=== PATIENT | female | born 1950 | race Two or more races ===

== ENCOUNTER 2017-09-29 00:34 | Emergency (ER) | payer MEDICARE, OTHER ==
[~2017-09-29] VITALS: Ht 165.1 cm; Wt 81.2 kg
[~2017-09-29 00:34] MED LIST: ASPI-1169 PO; OMEPRAZOLE
--- NOTE | 2017-09-29 01:00 | NUR ---
AT [facility] BEDSIDE FOR MSE
--- NOTE | 2017-09-29 01:00 | NUR ---
PT BROUGHT IN BY EMS FOLLOWING SYNCOPAL EPISODE FOLLOWING ONSET OF CHEST PAIN X 1 DAY. C/O DIZZINESS AND FEELING LIGHTHEADED. REPORTS PAIN RADIATING TO BACK.
--- NOTE | 2017-09-29 01:15 | NUR ---
Elham hendrickson in EDM - 09/29/17 at 0117 by JORY Pt's blood pressure remains low. Dr. Tate notified, no further orders received at this time.
--- NOTE | 2017-09-29 01:15 | NUR ---
Pt's blood pressure remains low. Dr. Tate notified, no further orders received at this time.
--- NOTE | 2017-09-29 01:16 | NUR ---
RADIOLOGY IN ROOM FOR XRAY
[2017-09-29 01:20] LABS: BASOPHILS # (AUTO) 0.1 K/uL (0.0-8.0); BASOPHILS % (AUTO) 0.8 % (0.0-2.0); EOSINOPHILS # (AUTO) 0.2 K/uL (0.0-0.7); EOSINOPHILS % (AUTO) 2.8 % (0.0-7.0); HEMATOCRIT 38.1 % (31.2-41.9); HEMOGLOBIN 12.9 g/dL (10.9-14.3); LYMPHOCYTES # (AUTO) 2.6 K/uL (20.0-40.0); MEAN CORPUSCULAR HEMOGLOBIN 30.7 uug (24.7-32.8); MEAN CORPUSCULAR HGB CONC 34 g/dL (32.3-35.6); MEAN CORPUSCULAR VOLUME 90.6 fL (75.5-95.3); MONOCYTES # (AUTO) 0.7 K/uL (2.0-10.0); MONOCYTES % (AUTO) 10.3 % (0.0-11.0); NEUTROPHILS # (AUTO) 3.6 K/uL (1.8-8.9); NEUTROPHILS % (AUTO) 50.1 % (38.5-71.5); PLATELET COUNT (AUTO) 222 K/uL (179-408); WHITE BLOOD COUNT (AUTO) 7.2 K/uL (3.8-11.8)
[2017-09-29 01:29] LABS: CREATININE 1.1 mg/dL (0.6-1.3); POTASSIUM 3.9 mmol/L (3.5-5.1)
--- NOTE | 2017-09-29 01:40 | NUR ---
PT RESTING IN A POSITION OF COMFORT W/ EYES CLOSED
--- NOTE | 2017-09-29 02:05 | NUR ---
Patient discharged to home in stable conditon. Written and verbal after care instructions given. Patient verbalizes understanding of instructions. Pt ambulated out of ER w/ steady gait
[2017-09-29 02:14] VITALS: BP 134/83
== END 2017-09-29 02:15 | disposition home or self-care (01) ==
LOC: ER 00:35
DX: R07.9 Chest pain, unspecified (principal); K21.9 Gastro-esophageal reflux disease without esophagitis; Z79.82 Long term (current) use of aspirin
CPT/HCPCS: 36415; 71010; 80048; 84484; 85025; 85730; 93005; 99285; A4663; 70030-TC